=== PATIENT | male | born 1995 | race American Indian/Alaskan Native ===

== ENCOUNTER 2021-01-09 18:36 | Emergency (ER) | payer MEDICAID | END 2021-01-09 20:55 | disposition left against medical advice (07) | LOC: DL.ED 18:36 | DX: Z53.21 Procedure and treatment not carried out due to patient leaving prior to being seen by health care provider (principal) ==

== ENCOUNTER 2021-08-09 11:59 | Emergency (ER) | payer MEDICAID ==
[2021-08-09] MEDS ORDERED: Ketorolac 30 MG/ML SDV IM ONE (12:27)
--- NOTE | 2021-08-09 12:40 | EDM.PDOC ---
ED HPI GENERAL MEDICAL PROBLEM - General Chief Complaint: Respiratory Problem Stated Complaint: TEMP / COUGH / BODY ACHES Time Seen by Provider: 08/09/21 12:33 Source of Information: Reports: Patient History Limitations: Reports: No Limitations - History of Present Illness INITIAL COMMENTS - FREE TEXT/NARRATIVE: 25 y/o M c/o fever, chills, body aches, and cough for three days. Has 2 covid vaccines but has not received his latest booster. Has been eating and drinking ok. Normal urine output. Took tylenol yesterday but nothing today. Denies chatterjee, vision prob, cp, db, abd pn, pelvic pn, drugs, etoh, NVD. Generalized Pain Score (Numeric/FACES): 7 Headache Pain Score (Numeric/FACES): 8 - Related Data Allergies Allergy/AdvReac Type Severity Reaction Status Date / Time cefaclor [From Ceclor] Allergy Itching Verified 08/09/21 12:15 Home Meds: Home Meds Albuterol Sulfate [Proair Hfa] 8.5 gm IH Q4HR PRN 02/03/21 [History] Past Medical History - Past Health History Medical/Surgical History: Denies Medical/Surgical History HEENT History: Reports: None Cardiovascular History: Reports: None Respiratory History: Reports: None Musculoskeletal History: Reports: Other (See Below) Other Musculoskeletal History: bones feel sore in the joints in the morning and then gets better Psychiatric History: Reports: ADHD Hematologic History: Reports: None Oncologic (Cancer) History: Reports: Other (See Below) Other Oncologic History: states he has had weight loss that he has not tried to loose. Decreased appetite. Dermatologic History: Reports: Other (See Below) Other Dermatologic History: acne - Infectious Disease History Infectious Disease History: Reports: Novel Coronavirus Social & Family History - Family History Family Medical History: No Pertinent Family History - Tobacco Use Tobacco Use Status *Q: Current Every Day Tobacco User Years of Tobacco use: 8 Packs/Tins Daily: 0.4 - Caffeine Use Caffeine Use: Reports: Soda - Recreational Drug Use Recreational Drug Use: No - Living Situation & Occupation Living situation: Reports: with Family Occupation: Student ED ROS GENERAL - Review of Systems Review Of Systems: Comprehensive ROS is negative, except as noted in HPI. ED EXAM, GENERAL - Physical Exam Exam: See Below Exam Limited By: No Limitations General Appearance: Alert, No Apparent Distress Eye Exam: Bilateral Eye: PERRL Ears: Normal External Exam, Normal Canal, Hearing Grossly Normal, Normal TMs Nose: Normal Inspection, Normal Mucosa, No Blood Throat/Mouth: Normal Inspection, Normal Lips, Normal Teeth, Normal Gums, Normal Oropharynx, Normal Voice, No Airway Compromise Head: Atraumatic, Normocephalic Neck: Normal Inspection, Supple, Non-Tender, Full Range of Motion, Lymphadenopathy (L), Lymphadenopathy (R) Respiratory/Chest: No Respiratory Distress, Lungs Clear, Normal Breath Sounds, No Accessory Muscle Use, Chest Non-Tender Cardiovascular: Normal Peripheral Pulses, Regular Rate, Rhythm, No Edema, No Gallop, No JVD, No Murmur, No Rub GI/Abdominal: Soft, Non-Tender (Male) Exam: Deferred Rectal (Males) Exam: Deferred Back Exam: Normal Inspection, Full Range of Motion, NT Extremities: Normal Inspection, Normal Range of Motion, Non-Tender, Normal Capillary Refill, No Pedal Edema Neurological: Alert, Oriented, CN II-XII Intact, Normal Cognition, Normal Gait, Normal Reflexes, No Motor/Sensory Deficits Psychiatric: Normal Affect, Normal Mood Skin Exam: Warm, Dry, Intact Course - Vital Signs Last Recorded V/S: Last Vital Signs Temp 100.8 F H 08/09/21 12:53 Pulse 94 08/09/21 12:11 Resp 20 08/09/21 12:11 BP 129/79 08/09/21 12:11 Pulse Ox 98 08/09/21 12:11 - Orders/Labs/Meds Labs: Laboratory Tests 08/09/21 Range/Units 12:11 Influenza Type A RNA Positive H (NEGATIVE) RSV RNA ([facility]) Negative (NEGATIVE) Influenza Type B RNA Negative (NEGATIVE) SARS-CoV-2 RNA ([facility]) Negative (NEGATIVE) Meds: Medications Discontinued Medications Generic Name Dose Route Start Last Admin Trade Name Freq PRN Reason Stop Dose Admin Acetaminophen 1,000 mg 08/09/21 12:44 08/09/21 12:53 Acetaminophen 500 Mg Tab PO 08/09/21 12:45 1,000 mg ONETIME ONE Administration Ketorolac Tromethamine 30 mg 08/09/21 12:27 08/09/21 12:53 Ketorolac 30 Mg/Ml Sdv IM 08/09/21 12:28 30 mg ONETIME ONE Administration - Re-Assessments/Exams Free Text/Narrative Re-Assessment/Exam: 08/09/21 13:25 I discussed the lab and exam with the pt and informed him that he has influenza. He is past the 48 hr huey for Tamiflu. Departure - Departure Time of Disposition: 13:26 Disposition: Home, Self-Care 01 Condition: Fair Clinical Impression: Influenza A - Discharge Information *PRESCRIPTION DRUG MONITORING PROGRAM REVIEWED*: Not Applicable *COPY OF PRESCRIPTION DRUG MONITORING REPORT IN PATIENT JORGE: Not Applicable Instructions: Influenza, Adult, [id number] Forms: ED Department Discharge Additional Instructions: Use tylenol and Ibuprofen for pain and fever control. Continue to drink plenty of fluids to maintain hydration. Isolate until you have been fever free for 24 hrs without Tylenol and ibuprofen in your system. The flu typically lasts 5-7 days but can last 2 weeks. If any new symptoms or concerns develop contact your primary care facility or return to the ER. Sepsis Event Note (ED) - Evaluation Sepsis Screening Result: Possible Sepsis Risk - Focused Exam Vital Signs: Vital Signs Temp Temp Pulse Resp BP Pulse Ox 08/09/21 12:53 100.8 F H 08/09/21 12:11 103.3 F H 94 20 129/79 98
[2021-08-09] MEDS ORDERED: Acetaminophen 500 MG Tab PO ONE (12:44)
[2021-08-09 13:11] LABS: CORONAVIRUS COVID-19 NAA NEGATIVE (NEGATIVE); RESPIRATORY SYNCYTIAL VIR NAA NEGATIVE (NEGATIVE)
[2021-08-09 13:47] VITALS: BP 129/79; PULSE 94
== END 2021-08-09 13:45 | disposition home or self-care (01) ==
LOC: DL.ED 11:59
DX: J10.1 Influenza due to other identified influenza virus with other respiratory manifestations (principal); Z72.0 Tobacco use; Z88.1 Allergy status to other antibiotic agents; Z20.822 Contact with and (suspected) exposure to COVID-19
CPT/HCPCS: 0241U; 96372; 99283; A9270; J1885

== ENCOUNTER 2025-04-16 02:06 | Emergency (ER) | payer MEDICAID, OTHER ==
[2025-04-16] MEDS: Bacitracin Oint 1 GM U/D Packet TOP ONE (03:15)
[2025-04-16] MEDS: Diphtheria,Pertussis(Acell),Tetanus Vaccine 0.5 ML Syringe IM ONE (03:15)
[2025-04-16 03:40] VITALS: BP 154/97; PULSE 107
== END 2025-04-16 03:28 | disposition home or self-care (01) ==
LOC: DL.ED 02:06
DX: S01.112A Laceration without foreign body of left eyelid and periocular area, initial encounter (principal); S01.511A Laceration without foreign body of lip, initial encounter; Z88.1 Allergy status to other antibiotic agents; Z79.899 Other long term (current) drug therapy; Z86.16 Personal history of COVID-19; Z23 Encounter for immunization; Y04.8XXA Assault by other bodily force, initial encounter
CPT/HCPCS: 12011; 70450; 70486; 90471; 90715; 99284; A9270; J2003